=== PATIENT | male | born 1990 | race Caucasian/White ===

== ENCOUNTER 2023-12-31 08:05 | Emergency (ER) | payer OTHER ==
[~2023-12-31] VITALS: Ht 177.8 cm; Wt 70.3 kg
[2023-12-31 08:15] VITALS: BP 163/94
[2023-12-31] MEDS ORDERED: PENVK500 PO (08:17)
[2023-12-31] MEDS ORDERED: HYDR1TAB94 PO (08:18)
== END 2023-12-31 08:20 | disposition home or self-care (01) ==
LOC: ER 08:05
DX: K04.7 Periapical abscess without sinus (principal)
CPT/HCPCS: 99283-25

== ENCOUNTER 2024-01-12 15:18 | Emergency (ER) | payer OTHER ==
[~2024-01-12] VITALS: Ht 177.8 cm; Wt 68.0 kg
[~2024-01-12 15:18] MED LIST: HYDR1TAB94 PO; PENVK500 PO
[2024-01-12 15:30] VITALS: BP 145/98
== END 2024-01-12 18:02 | disposition left against medical advice (07) ==
LOC: ER 15:18
DX: G43.909 Migraine, unspecified, not intractable, without status migrainosus (principal); Z53.29 Procedure and treatment not carried out because of patient's decision for other reasons
CPT/HCPCS: 99281

== ENCOUNTER 2024-01-14 07:36 | Emergency (ER) | payer OTHER ==
[~2024-01-14] VITALS: Ht 177.8 cm; Wt 68.0 kg
[2024-01-14 08:21] VITALS: BP 165/92
== END 2024-01-14 08:22 | disposition home or self-care (01) ==
LOC: ER 07:36
DX: F19.10 Other psychoactive substance abuse, uncomplicated (principal); F15.90 Other stimulant use, unspecified, uncomplicated
CPT/HCPCS: 99282